=== PATIENT | female | born 1955 | race Caucasian/White ===

== ENCOUNTER → 2017-06-22 | Outpatient (CLI) | payer BC ==
--- NOTE | 2017-06-23 11:50 | Diagnostic Imaging Report ---
Procedure: Digital mammogram. Indication: Bilateral screening. Comparison: The study was compared to prior exams of 07/03/2015, 01/07/2015 and 01/13/2014. At this time there are no current complaints. Findings: The prior exam of 07/03/2015 showed a 1 cm circumscribed axillary nodule on the right. That finding is not as conspicuous on this exam. There is still a small 5 mm lymph node overlying the pectoralis muscle on the right on the MLO view. The fibroglandular tissue in both breasts is heterogeneously dense. This does limit the sensitivity of this exam. Overall, there does not appear to have been any significant change when compared to the prestudy. There is no primary or secondary sign of malignancy noted. Impression: 1. There is no evidence of malignancy. 2. The patient should have her annual bilateral screening mammogram on schedule in May of 2018. ACR BI-RADS Category 1: Negative. Result letter will be mailed to the patient. Note: At least 10% of breast cancer is not imaged by mammography. Dictated on workstation # [id number]
== END ==
LOC: RAD 07:41
PROVIDERS: ATTEND Internal Medicine
DX: Z12.31 Encounter for screening mammogram for malignant neoplasm of breast (principal)
CPT/HCPCS: 77067

== ENCOUNTER → 2018-07-10 | Outpatient (CLI) | payer BC ==
--- NOTE | 2018-07-10 12:56 | Diagnostic Imaging Report ---
INDICATION: Routine screening. COMPARISON: 06/22/2017 and 07/03/2015. TECHNIQUE: 2D and 3D bilateral screening mammography was performed with CAD. FINDINGS: Scattered fibroglandular densities are identified bilaterally. Occasional benign-appearing calcifications are noted. No mass or malignant appearing microcalcifications are seen. The axillae are unremarkable. IMPRESSION: No mammographic features suspicious for malignancy are identified. ACR BI-RADS Category 2: Benign findings. Result letter will be mailed to the patient. Note: At least 10% of breast cancer is not imaged by mammography. Dictated by: Dictated on workstation # [id number]
== END ==
LOC: RAD 08:34
PROVIDERS: ATTEND Internal Medicine
DX: Z12.31 Encounter for screening mammogram for malignant neoplasm of breast (principal)
CPT/HCPCS: 77067

== ENCOUNTER → 2019-07-22 | Outpatient (CLI) | payer BC ==
--- NOTE | 2019-07-22 12:40 | Diagnostic Imaging Report ---
INDICATION: Screening. EXAMINATION: Digital screening with CAD. COMPARISON: 07/10/2018, 06/25/2017, and 07/03/2015. FINDINGS: Moderate fibroglandular density shows no change. No mass, architectural distortion, spiculated lesion, or suspicious calcifications. IMPRESSION: Stable negative mammograms. ACR BI-RADS Category 1: Negative. Result letter will be mailed to the patient. Note: At least 10% of breast cancer is not imaged by mammography. Dictated by: Dictated on workstation # [id number]
== END ==
LOC: RAD 07:49
PROVIDERS: ATTEND Internal Medicine
DX: Z12.31 Encounter for screening mammogram for malignant neoplasm of breast (principal)
CPT/HCPCS: 77063; 77067

== ENCOUNTER → 2020-09-25 | Outpatient (CLI) | payer BC ==
--- NOTE | 2020-09-25 10:08 | Diagnostic Imaging Report ---
INDICATION: Routine screening. Comparison is made with prior mammogram 07/22/2019 and 07/10/2018. 2-D and 3-D bilateral screening mammography was performed with CAD. Both breasts are heterogeneously dense, limiting the sensitivity of mammography. The parenchymal pattern is stable. There are benign calcifications on the left. No mass or malignant appearing microcalcifications are seen. Axillae are unremarkable. IMPRESSION: BI-RADS Category 2 No mammographic features suspicious for malignancy are identified. ACR BI-RADS Category 2: Benign findings. Result letter will be mailed to the patient. Note: At least 10% of breast cancer is not imaged by mammography. Dictated by: Dictated on workstation # [id number]
== END ==
LOC: RAD 08:15
PROVIDERS: ATTEND Internal Medicine
DX: Z12.31 Encounter for screening mammogram for malignant neoplasm of breast (principal)
CPT/HCPCS: 77063; 77067

== ENCOUNTER → 2021-07-13 | Outpatient (CLI) | payer BC ==
--- NOTE | 2021-07-13 12:18 | Diagnostic Imaging Report ---
PROCEDURE: US Bilateral lower extremity arterial. TECHNIQUE: Multiple real-time grayscale images are obtained through both lower extremity arterial systems with color Doppler imaging and color Doppler spectral analysis. INDICATION: Peripheral vascular disease. COMPARISON: None available FINDINGS: Right lower extremity: Color Doppler imaging shows patency of the common femoral, proximal deep femoral, superficial femoral, popliteal, posterior tibial and dorsalis pedis arteries. Above the knee there are probably triphasic waveforms. Below the knee and biphasic waveforms predominate. No elevated peak systolic velocities would indicate hemodynamically significant stenosis. Left lower extremity: Color Doppler imaging shows patency of the common femoral, proximal deep femoral, superficial femoral, popliteal, posterior tibial and dorsalis pedis arteries. There is a mixture of triphasic and biphasic waveforms throughout the left lower extremity. No elevated peak systolic velocities would indicate hemodynamically significant stenosis. JESSE: Not performed. IMPRESSION: No arterial occlusion or high-grade stenosis in the bilateral lower extremities. Dictated by: Dictated on workstation # [id number]
== END ==
LOC: RAD 08:49
PROVIDERS: ATTEND Internal Medicine
DX: I73.9 Peripheral vascular disease, unspecified (principal)
CPT/HCPCS: 93925

== ENCOUNTER → 2021-07-27 | Outpatient (CLI) | payer BC | LOC: WOUNDCARE 12:03 | PROVIDERS: ATTEND Family Medicine | DX: S51.812A Laceration without foreign body of left forearm, initial encounter (principal); E66.01 Morbid (severe) obesity due to excess calories; E11.65 Type 2 diabetes mellitus with hyperglycemia; F17.218 Nicotine dependence, cigarettes, with other nicotine-induced disorders | CPT/HCPCS: 99212 ==

== ENCOUNTER → 2021-08-03 | Outpatient (CLI) | payer BC | LOC: WOUNDCARE 12:21 | PROVIDERS: ATTEND Family Medicine | DX: S51.812A Laceration without foreign body of left forearm, initial encounter (principal); E66.01 Morbid (severe) obesity due to excess calories; E11.65 Type 2 diabetes mellitus with hyperglycemia; F17.218 Nicotine dependence, cigarettes, with other nicotine-induced disorders; Z68.41 Body mass index [BMI] 40.0-44.9, adult | CPT/HCPCS: 99212 ==

== ENCOUNTER → 2021-11-02 | Outpatient (CLI) | payer BC ==
--- NOTE | 2021-11-02 13:27 | Diagnostic Imaging Report ---
INDICATION: Routine screening. COMPARISON: 09/25/2020 and 07/22/2019. TECHNIQUE: 2D and 3D bilateral screening mammography was performed with CAD. FINDINGS: Scattered fibroglandular densities are identified bilaterally. The parenchymal pattern is stable. No mass or malignant-appearing microcalcifications are seen. There are benign calcifications. The axillae are unremarkable. IMPRESSION: No mammographic features suspicious for malignancy are identified. ACR BI-RADS Category 2: Benign findings. Result letter will be mailed to the patient. Note: At least 10% of breast cancer is not imaged by mammography. Dictated by: Dictated on workstation # [id number]
== END ==
LOC: RAD 08:15
PROVIDERS: ATTEND Internal Medicine
DX: Z12.31 Encounter for screening mammogram for malignant neoplasm of breast (principal)
CPT/HCPCS: 77063; 77067

== ENCOUNTER → 2022-11-07 | Outpatient (CLI) | payer BC ==
--- NOTE | 2022-11-07 12:30 | Diagnostic Imaging Report ---
Indication: Routine screening. Comparison is made with prior mammogram 11/02/21 and 09/25/2020. 2-D and 3-D bilateral screening mammography was performed with CAD. The current study was also evaluated with a Computer Aided Detection (CAD) system. Both breasts are heterogeneously dense, limiting sensitivity of mammography. The parenchymal pattern is stable. No mass or malignant-appearing microcalcifications are seen. Axillae are unremarkable. IMPRESSION: BI-RADS Category 1 No mammographic features suspicious for malignancy are identified. ACR BI-RADS Category 1: Negative. Result letter will be mailed to the patient. Note: At least 10% of breast cancer is not imaged by mammography. Dictated by: Dictated on workstation # [id number]
== END ==
LOC: RAD 08:45
PROVIDERS: ATTEND Internal Medicine
DX: Z12.31 Encounter for screening mammogram for malignant neoplasm of breast (principal)
CPT/HCPCS: 77063; 77067